=== PATIENT | female | born 1990 | race Caucasian/White ===

== ENCOUNTER 2024-12-20 12:38 | Emergency (ER) | payer BC ==
[2024-12-20 13:01] VITALS: TEMP 97.1
--- NOTE | 2024-12-20 13:07 | ERPHSYRPT ---
- History of Present Illness Time Seen by Provider: 12/20/24 12:53 Source: patient Patient Subjective Stated Complaint: pt here for not feeling well for about a week, she started herself on macrobid and when she didnt feel better she went to [facility] and was placed on cipro, her urine culture was negative. she denies pain or fever, she states her heart feels like its racing at times when she walkes Triage Nursing Assessment: pt alert, walked in, resp easy.skin w/d/p. moves all ext well, no edema noted, no cough, Physician History: Patient is a 34-year-old female who presents for multiple complaints including generalized malaise, fatigue, dysuria, palpitations, and chest heaviness. Patient reports that approximately a week ago she thought she had a urinary tract infection so she started taking some Macrobid that she had at home. She reports that she was not feeling any better so on Monday, 2 days ago, she was seen at another facility and had some labs done. She reports that she was started on ciprofloxacin twice daily and has 1 pill left. She reports that she still does not feel a lot better even after the antibiotic. Allergies/Adverse Reactions: amoxicillin [From Augmentin] Allergy (Verified 12/20/24 12:45) cefaclor [From Ceclor] Allergy (Verified 12/20/24 12:45) clavulanic acid [From Augmentin] Allergy (Verified 12/20/24 12:45) Sulfa (Sulfonamide Antibiotics) Allergy (Verified 12/20/24 12:45) Home Medications: Ciprofloxacin [Cipro] 500 mg PO BID 12/20/24 [History] Dextroamphetamine/Amphetamine [Dextroamp-Amphetamin 15 mg Tab] 15 mg BID 12/20/24 [History] Levothyroxine Sodium 50 mcg PO DAILY 12/20/24 [History] Tirzepatide [Zepbound] 15 mg SQ UD 12/20/24 [History] Hx Tetanus, Diphtheria Vaccination/Date Given: No Hx Influenza Vaccination/Date Given: No Hx Pneumococcal Vaccination/Date Given: No Immunizations Up to Date: Yes Travel Risk - International Travel Have you traveled outside of the country in past 3 weeks: No - Emerging Infectious Disease Are you exhibiting symptoms associated with any current EIDs: No - Review of Systems Constitutional: Malaise Respiratory: No Cough Cardiac: Palpitations Abdominal/Gastrointestinal: Nausea, Appetite Changes, No Vomiting, No Diarrhea, No Constipation Genitourinary Symptoms: Dysuria, Frequency, No Hematuria Musculoskeletal: Arthralgias Skin: No Symptoms - Past Medical History Pertinent Past Medical History: Yes Endocrine Medical History: Hypothyroidism Psycho-Social History: Attention Deficit Disorder - Past Surgical History Past Surgical History: Yes Gastrointestinal: Cholecystectomy Female Surgical History: Section - Female History Hx Last Menstrual Period: month ago Hx Now: No - Social History Smoking Status: Never smoker Exposure to second hand smoke: No Drug Use: none - Social Determinants of Health Will the patient participate in the screening: Yes Do you worry about a steady place to live?: No Do you have any problems with any of the following?: No known problems In the past 12 months,have you had to go without utilities?: No Transportation Issues: No Has anyone in your support network made you feel unsafe?: No Have you or anyone in your house had to go w/o enough food: No - Nursing Vital Signs Nursing Vital Signs: Initial Vital Signs Temperature 97.1 F 12/20/24 13:00 Pulse Rate 104 H 12/20/24 13:00 Respiratory Rate 18 12/20/24 13:00 Blood Pressure 109/79 12/20/24 13:00 O2 Sat by Pulse Oximetry 100 12/20/24 13:00 Pain Scale Pain Intensity 0 - Physical Exam General Appearance: mild distress Ears, Nose, Throat Exam: normal ENT inspection Neck Exam: non-tender Respiratory Exam: normal breath sounds, lungs clear Cardiovascular Exam: tachycardia Gastrointestinal/Abdomen Exam: soft, No guarding, No rebound Back Exam: normal range of motion Extremity Exam: normal inspection Neurologic Exam: alert, oriented x 3 Skin Exam: normal color SpO2 Interpretation: normal SpO2: 100 - Course EKG Interpreted by Me: RATE ([id number]), NORMAL AXIS, NORMAL INTERVALS, NORMAL QRS, NORMAL ST-T Ordered Tests: Active Orders 24 hr Category Date Time Status EKG-ER Only STAT Care 12/20/24 13:00 Completed IV Insertion STAT Care 12/20/24 13:00 Completed CHEST 1 VIEW (PORTABLE) Stat Exams 12/20/24 13:02 Completed CBC W DIFF Stat Lab 12/20/24 13:10 Results CMP Stat Lab 12/20/24 13:10 Completed D-DIMER QUANTITATIVE Stat Lab 12/20/24 13:10 Completed HCG QUALITATIVE, SERUM Stat Lab 12/20/24 13:10 Completed Manual Differential NC Stat Lab 12/20/24 13:10 Results Pathologist Review Stat Lab 12/20/24 13:10 Results Medication Summary Discontinued Medications Generic Name Dose Route Start Last Admin Trade Name Neli PRN Reason Stop Dose Admin Sodium Chloride 1,000 mls @ 999 mls/hr 12/20/24 13:00 12/20/24 14:43 Sodium Chloride 0.9% 1000 Ml IV 12/20/24 14:00 Infused .Q1H1M STA Infusion Sodium Chloride Confirm 12/20/24 13:36 Sodium Chloride 0.9% 1000 Ml Administered 12/20/24 13:37 Dose 1,000 mls @ ud .ROUTE .K-MED ONE Lab/Rad Data: Laboratory Result Diagrams 12/20/24 13:10 12/20/24 13:10 Laboratory Results 12/20/24 12/20/24 12/20/24 Range/Units 13:15 13:10 13:10 WBC (3.98-10.04) x10^3/uL RBC (3.93-5.22) x10^6/uL Hgb (11.2-15.7) g/dL Hct (34.1-44.9) % MCV (79.4-94.8) fL MCH (25.6-32.2) pg MCHC (32.2-35.5) g/dL RDW (11.7-14.4) % Plt Count (182-369) x10^3/uL MPV (9.4-12.3) fL Segmented Neutrophils (34.0-71.1) % Band Neutrophils (0.0-2.0) % Lymphocytes (Manual) (19.3-51.7) % Monocytes (Manual) (4.7-12.5) % Nucleated RBCs % Atypical Lymphocytes % Platelet Estimate (NORMAL) RBC Morphology Smear Path Review D-Dimer 0.34 (0.0-0.50) mg/L Sodium (135-145) mmol/L Potassium (3.5-5.1) mmol/L Chloride (98-107) mmol/L Carbon Dioxide (22-30) mmol/L Anion Gap (5-15) MEQ/L BUN (7-17) mg/dL Creatinine (0.52-1.04) mg/dL Estimated GFR ML/MIN Glucose (74-106) mg/dL Calcium (8.4-10.2) mg/dL Total Bilirubin (0.2-1.3) mg/dL AST (14-36) U/L ALT (0-35) U/L Alkaline Phosphatase (38-126) U/L Serum Total Protein (6.3-8.2) g/dL Albumin (3.5-5.0) g/dL Serum HCG, Qual NEGATIVE (NEGATIVE) Influenza Type A Ag NEGATIVE (NEGATIVE) Influenza Type B Ag NEGATIVE (NEGATIVE) RSV (PCR) NEGATIVE (NEGATIVE) SARS-CoV-2 (PCR) NEGATIVE (NEGATIVE) 12/20/24 12/20/24 Range/Units 13:10 13:10 WBC 1.4 L* (3.98-10.04) x10^3/uL RBC 5.20 (3.93-5.22) x10^6/uL Hgb 15.3 (11.2-15.7) g/dL Hct 45.7 H (34.1-44.9) % MCV 87.9 (79.4-94.8) fL MCH 29.4 (25.6-32.2) pg MCHC 33.5 (32.2-35.5) g/dL RDW 13.0 (11.7-14.4) % Plt Count 116 L (182-369) x10^3/uL MPV 11.2 (9.4-12.3) fL Segmented Neutrophils 44 (34.0-71.1) % Band Neutrophils 2 (0.0-2.0) % Lymphocytes (Manual) 39 (19.3-51.7) % Monocytes (Manual) 12 (4.7-12.5) % Nucleated RBCs 1 % Atypical Lymphocytes 3 % Platelet Estimate DECREASED (NORMAL) RBC Morphology NORMAL Smear Path Review Pending D-Dimer (0.0-0.50) mg/L Sodium 135 (135-145) mmol/L Potassium 3.7 (3.5-5.1) mmol/L Chloride 106 (98-107) mmol/L Carbon Dioxide 22 (22-30) mmol/L Anion Gap 11.6 (5-15) MEQ/L BUN 15 (7-17) mg/dL Creatinine 0.82 (0.52-1.04) mg/dL Estimated GFR 95.0 ML/MIN Glucose 72 L (74-106) mg/dL Calcium 8.1 L (8.4-10.2) mg/dL Total Bilirubin < 0.10 L (0.2-1.3) mg/dL AST 25 (14-36) U/L ALT 16 (0-35) U/L Alkaline Phosphatase 44 (38-126) U/L Serum Total Protein 6.3 (6.3-8.2) g/dL Albumin 3.5 (3.5-5.0) g/dL Serum HCG, Qual (NEGATIVE) Influenza Type A Ag (NEGATIVE) Influenza Type B Ag (NEGATIVE) RSV (PCR) (NEGATIVE) SARS-CoV-2 (PCR) (NEGATIVE) [id number] RAD/CHEST 1 VIEW (PORTABLE) Indication: Chest tightness. Tachycardia. Comparison: None Portable chest demonstrates normal heart, lungs, and bony thorax with incidental tiny left upper lung calcified granulomas. Reported by: DEREK RUIZ DO Signed by: DEREK RUIZ DO Signed date/time: 12/20/24 1315 - Progress Progress Note: 12/20/24 16:07 Spoke with the patient's primary care provider, Amparo Boogie, and discussed the patient's lab work at [facility] a few days ago as well as today. Discussed the patient's prior white blood cell count which was January 2024 and was normal, approximately 6.3. Discussed ordering a peripheral blood smear with results to go to the primary care provider. Called the lab and spoke with the lab to order the peripheral blood smear with the results to go to Amparo Boogie. Discussed these results with the patient and discussed the additional testing that her primary care provider requested. Explained that the patient's primary care provider would be following up with the results. Explained that the patient should return if symptoms worsen, but at this time there is no indication for admission. Discussed supportive care measures including adequate hydration and rest. Patient expressed understanding. Counseled pt/family regarding: lab results Medical Desision Making - External Record(s) Reviewed Records reviewed as a part of evaluation & management: Urgent Care (Labs from Monday, 2 days ago: White blood cell count 1.8, hemoglobin 13.6, platelets 149. Sodium 134, chloride 104, potassium 3.9, glucose 84, creatinine 0.7, AST 22, ALT 12, TSH 1.950, free T4 1.33.) - Departure Departure Disposition: Home Clinical Impression: Malaise and fatigue Leukopenia Qualifiers: Leukopenia type: unspecified Qualified Code(s): D72.819 - Decreased white blood cell count, unspecified Condition: Stable Critical Care Time: No Referrals: CARA BOOGIE PA [Primary Care Provider, UNKNOWN] - Follow up/PCP as directed Instructions: Fatigue (DC) Additional Instructions: Follow up with your primary care provider to discuss the additional testing and if further evaluation and management is needed.
--- NOTE | 2024-12-20 13:16 | XRAY ---
Indication: Chest tightness. Tachycardia. Comparison: None Portable chest demonstrates normal heart, lungs, and bony thorax with incidental tiny left upper lung calcified granulomas.
[2024-12-20 13:18] LABS: Hematocrit 45.7 % (34.1-44.9); Hemoglobin 15.3 g/dL (11.2-15.7); Mean Corpuscular Hemoglobin 29.4 pg (25.6-32.2); Mean Corpuscular Hgb Concent. 33.5 g/dL (32.2-35.5); Platelet Count 116 x10^3/uL (182-369); Red Blood Count 5.20 x10^6/uL (3.93-5.22)
[2024-12-20 13:23] LABS: White Blood Count 1.4 x10^3/uL (3.98-10.04)
[2024-12-20 13:32] LABS: Calcium 8.1 mg/dL (8.4-10.2); Carbon Dioxide 22 mmol/L (22-30); Creatinine 1 0.82 mg/dL (0.52-1.04); EST GLOMERULAR FILTRATION RATE 95.0 ML/MIN; Glucose 72 mg/dL (74-106); Potassium 3.7 mmol/L (3.5-5.1); SGOT/AST 25 U/L (14-36); SGPT/ALT 16 U/L (0-35); Total Protein 6.3 g/dL (6.3-8.2)
[2024-12-20 13:38] LABS: HCG SERUM TEST NEGATIVE (NEGATIVE)
[2024-12-20 13:53] LABS: INFLUENZA A NEGATIVE (NEGATIVE); INFLUENZA B NEGATIVE (NEGATIVE); RESPIRATORY SYNCTIAL VIRUS NEGATIVE (NEGATIVE); SARS-CoV-2 Xpert Express NEGATIVE (NEGATIVE)
[2024-12-20 13:55] LABS: BAND 2 % (0.0-2.0); Total Cells Counted 100
[2024-12-20 16:04] VITALS: RESP 16; O2SAT 100
[2024-12-20 17:05] VITALS: BP 94/52; PULSE 88
== END 2024-12-20 17:00 | disposition home or self-care (01) ==
LOC: ED 12:38
DX: D72.819 Decreased white blood cell count, unspecified (principal); R53.81 Other malaise; R53.83 Other fatigue